=== PATIENT | female | born 1980 | race African-American/Black ===

== ENCOUNTER 2016-03-29 07:55 | Emergency (ER) | payer OTHER ==
[~2016-03-29] VITALS: Ht 160 cm; Wt 101.2 kg
[2016-03-29 08:07] VITALS: BP 140/77
[2016-03-29] MEDS ORDERED: NAPROXEN 500 MG TABLET PO ONE (08:15)
[2016-03-29] MEDS ORDERED: ONDANSETRON ODT 4 MG TAB.RAPDIS PO ONE (08:15)
--- NOTE | 2016-03-29 08:18 | PHYS DOC ---
Past Medical History Past Medical History: No Pertinent History Past Surgical History: Other Additional Past Surgical Histo: D&C, oral surgery Alcohol Use: Occasionally Drug Use: None Adult General Chief Complaint Chief Complaint: COUGH HPI HPI Patient is a 35 year old female who presents with cough, body aches. Patient reports she has had cough off/on for the past month. More acutely she has been having increased cough, body aches, chills for the past two days. Had one episode of post-tussive emesis earlier this morning. She took some acetaminophen at home for symptoms with partial relief. No other acute complaints. Review of Systems Review of Systems Constitutional: Chills Eyes: Denies change in visual acuity or eye pain HENT: Denies nasal congestion or sore throat Respiratory: Cough. Denies shortness of breath Cardiovascular: Denies chest pain GI: One episode post-tussive emesis. Denies abdominal pain, nausea, bloody stools or diarrhea : Denies dysuria or hematuria Musculoskeletal: General body aches Integument: Denies rash or skin lesions Neurologic: Denies headache, focal weakness or sensory changes Current Medications Current Medications Current Medications Medications (Trade) Dose Ordered Sig/Harry Start Time Stop Time Status Last Admin Dose Admin Naproxen (Naprosyn) 500 mg 1X ONCE 03/29/16 08:15 03/29/16 08:21 DC 03/29/16 08:52 500 MG Ondansetron HCl (Zofran Odt) 4 mg 1X ONCE 03/29/16 08:15 03/29/16 08:21 DC 03/29/16 08:52 4 MG Allergies Allergies Allergies Coded Allergies Type Severity Reaction Last Updated Verified No Known Drug Allergies 06/20/13 No Physical Exam Physical Exam Constitutional: Well developed, well nourished, no acute distress, non-toxic appearance HENT: Normocephalic, atraumatic, bilateral external ears normal Eyes: EOMI, conjunctiva normal, no discharge Neck: Normal range of motion, no stridor Cardiovascular: Heart rate normal, regular rhythm, no murmur Lungs & Thorax: Bilateral breath sounds clear to auscultation Abdomen: Bowel sounds normal, soft, non-distended, no TTP Skin: Warm, dry, no erythema, no rash Extremities: No obvious deformity, no edema Neurologic: Alert and oriented X 3, no gross deficits noted Current Patient Data Vital Signs Vital Signs Date Time Temp Pulse Resp B/P Pulse Ox O2 Delivery O2 Flow Rate FiO2 03/29/16 08:07 99.9 103 16 97 Room Air 99.9 Lab Values Laboratory Tests Test 03/29/16 08:40 Urine Test Negative (NEG) EKG EKG [] Radiology/Procedures Radiology/Procedures CXR: IMPRESSION: No acute cardiopulmonary abnormality is detected. Course & Med Decision Making Course & Med Decision Making Pertinent Labs and Imaging studies reviewed. (See chart for details) Patient is 35 year old female who presents with cough, body aches. Likely viral URI. Given duration of cough will obtain CXR. Naproxen and zofran ordered for relief of symptoms. CXR results as above. Discussed results with patient. Will plan discharge home with rx for naproxen and tessalon, instructions for follow up, return precautions. Dragon Disclaimer Dragon Disclaimer This electronic medical record was generated, in whole or in part, using a voice recognition dictation system. Departure Departure Impression: Primary Impression: Upper respiratory infection Disposition: HOME, SELF-CARE Condition: STABLE Referrals: CHRISS HERNANDEZ (PCP) Patient Instructions: Upper Respiratory Infection, Adult Additional Instructions: Thank you for allowing us to provide care today in the Emergency Department. Take the provided medication as directed. Schedule a follow up appointment with your primary care doctor. Return promptly to the Emergency Department if you develop any new or concerning symptoms. Scripts Benzonatate (Tessalon Perle)100 Mg Capsule1 Cap PO TID PRN COUGH #15 CAP Prov:CYNTHIA DANIELLE MD 03/29/16 Naproxen 375 Mg [id number] Mg PO BID #20 Prov:CYNTHIA DANIELLE MD 03/29/16 CYNTHIA DANIELLE MD Mar 29, 2016 08:18
[2016-03-29 08:49] LABS: NEG OBC UR NEG; POS OBC UR POS
--- NOTE | 2016-03-29 09:05 | RAD ---
Chest, 2 views, 03/29/2016: History: Cough Comparison is made to a study from 05/25/2010. The heart size and pulmonary vascularity are normal. The lungs are clear. There is no evidence of pleural fluid. IMPRESSION: No acute cardiopulmonary abnormality is detected.
[2016-03-29] MEDS ORDERED: BENZ100C PO (09:24)
[2016-03-29] MEDS ORDERED: NAPR375T3 PO (09:24)
== END 2016-03-29 09:28 | disposition home or self-care (01) ==
LOC: ER 07:55
DX: J06.9 Acute upper respiratory infection, unspecified (principal)
CPT/HCPCS: 71020; 81025; 99285; Q0162

== ENCOUNTER 2016-09-10 07:17 | Emergency (ER) | payer SELFPAY ==
[~2016-09-10] VITALS: Ht 160 cm; Wt 86.2 kg
[~2016-09-10 07:17] MED LIST: BENZ100C PO; NAPR375T3 PO
--- NOTE | 2016-09-10 07:20 | PHYS DOC ---
Past Medical History Past Medical History: No Pertinent History Past Surgical History: Other Additional Past Surgical Histo: D&C, oral surgery Alcohol Use: Occasionally Drug Use: None Adult General Chief Complaint Chief Complaint: VAGINAL BLEEDING HPI HPI Patient is a 36 year old -[place] female who presents with vaginal bleeding started yesterday morning. She states yesterday she took a home test was positive. She states she's one month late for her cycle. 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 She states she's had some blood clots and this is little heavier than her normal cycle. She does have some suprapubic discomfort she states is crampy in nature. Review of Systems Review of Systems Constitutional: Denies fever or chills [] Eyes: Denies change in visual acuity, redness, or eye pain [] HENT: Denies nasal congestion or sore throat [] Respiratory: Denies cough or shortness of breath [] Cardiovascular: No additional information not addressed in HPI [] GI: Denies abdominal pain, nausea, vomiting, bloody stools or diarrhea [] : Denies dysuria or hematuria [] Musculoskeletal: Denies back pain or joint pain [] Integument: Denies rash or skin lesions [] Neurologic: Denies headache, focal weakness or sensory changes [] Endocrine: Denies polyuria or polydipsia [] Current Medications Current Medications Current Medications Medications (Trade) Dose Ordered Sig/Harry Start Time Stop Time Status Last Admin Dose Admin Acetaminophen (Tylenol) 1,000 mg 1X ONCE 09/10/16 08:00 09/10/16 08:01 DC 09/10/16 08:05 1,000 MG Allergies Allergies Allergies Coded Allergies Type Severity Reaction Last Updated Verified No Known Drug Allergies 06/20/13 No Physical Exam Physical Exam Constitutional: Well developed, well nourished, no acute distress, non-toxic appearance. [] HENT: Normocephalic, atraumatic, bilateral external ears normal, oropharynx moist, no oral exudates, nose normal. [] Eyes: PERRLA, EOMI, conjunctiva normal, no discharge. [] Neck: Normal range of motion, no tenderness, supple, no stridor. [] Cardiovascular:Heart rate regular rhythm, no murmur [] Lungs & Thorax: Bilateral breath sounds clear to auscultation [] Abdomen/pelvic: Bowel sounds normal, soft, no tenderness, no masses, no pulsatile masses. Normal external genitalia, minimal blood in the vault. Skin: Warm, dry, no erythema, no rash. [] Back: No tenderness, no CVA tenderness. [] Extremities: No tenderness, no cyanosis, no clubbing, ROM intact, no edema. [] Neurologic: Alert and oriented X 3, normal motor function, normal sensory function, no focal deficits noted. [] Psychologic: Affect normal, judgement normal, mood normal. [] Current Patient Data Vital Signs Vital Signs Date Time Temp Pulse Resp B/P (MAP) Pulse Ox O2 Delivery O2 Flow Rate FiO2 09/10/16 07:31 98.2 84 18 147/69 (95) 100 Room Air 98.2 Lab Values Laboratory Tests Test 09/10/16 06:33 09/10/16 07:25 09/10/16 07:44 POC Urine HCG, Qualitative Hcg positive (Negative) Urine Collection Type Void Urine Color Yellow Urine Clarity Clear Urine pH 6.0 Urine Specific [place] 1.020 Urine Protein Negative mg/dL (NEG-TRACE) Urine Glucose (UA) Negative mg/dL (NEG) Urine Ketones (Stick) Negative mg/dL (NEG) Urine Blood Large (NEG) Urine Nitrite Negative (NEG) Urine Bilirubin Negative (NEG) Urine Urobilinogen Dipstick 1.0 mg/dL (0.2 mg/dL) Urine Leukocyte Esterase Small (NEG) Urine RBC Tntc /HPF (0-2) Urine WBC 11-20 /HPF (0-4) Urine Squamous Epithelial Cells Many /LPF Urine Bacteria Moderate /HPF (0-FEW) Urine Mucus Marked /LPF Urine Trichomonas Present White Blood Count 11.4 x10^3/uL (4.0-11.0) H Red Blood Count 4.31 x10^6/uL (3.50-5.40) Hemoglobin 11.5 g/dL (12.0-15.5) L Hematocrit 36.1 % (36.0-47.0) Mean Corpuscular Volume 84 fL (79-100) Mean Corpuscular Hemoglobin 27 pg (25-35) Mean Corpuscular Hemoglobin Concent 32 g/dL (31-37) Red Cell Distribution Width 18.1 % (11.5-14.5) H Platelet Count 236 x10^3/uL (140-400) Neutrophils (%) (Auto) 71 % (31-73) Lymphocytes (%) (Auto) 22 % (24-48) L Monocytes (%) (Auto) 5 % (0-9) Eosinophils (%) (Auto) 1 % (0-3) Basophils (%) (Auto) 1 % (0-3) Neutrophils # (Auto) 8.1 x10^3uL (1.8-7.7) H Lymphocytes # (Auto) 2.5 x10^3/uL (1.0-4.8) Monocytes # (Auto) 0.6 x10^3/uL (0.0-1.1) Eosinophils # (Auto) 0.1 x10^3/uL (0.0-0.7) Basophils # (Auto) 0.1 x10^3/uL (0.0-0.2) Prothrombin Time 11.9 SEC (11.7-14.0) Prothrombin Time INR 0.9 (0.8-1.1) PTT 30 SEC (24-38) Maternal Serum HCG Beta Subunit 571 mIU/mL (0-5) H Sodium Level 139 mmol/L (136-145) Potassium Level 4.1 mmol/L (3.5-5.1) Chloride Level 105 mmol/L (98-107) Carbon Dioxide Level 29 mmol/L (21-32) Anion Gap 5 (6-14) L Blood Urea Nitrogen 11 mg/dL (7-20) Creatinine 0.8 mg/dL (0.6-1.0) Estimated GFR (Cockcroft-Gault) 99.4 Glucose Level 100 mg/dL (70-99) H Calcium Level 8.7 mg/dL (8.5-10.1) Laboratory Tests 09/10/16 07:44 Laboratory Tests 09/10/16 07:44 Microbiology 09/10/16 Wet Prep - Final, Complete Microbiology 09/10/16 Wet Prep - Final, Complete EKG EKG [] Radiology/Procedures Radiology/Procedures [facility] [address] [place], [place] [id number] IMAGING REPORT Signed PATIENT: ROBERT KNOWLES ACCOUNT: [id number] : 1980 LOCATION: ER AGE: 36 SEX: F EXAM STATUS: REG ER ORD. PHYSICIAN: ANGELO LERMA MD REASON: bleeding in PROCEDURE: OB < 14 WKS OB ultrasound study less than 14 weeks; transabdominal and transvaginal sonography evaluation Dictations: . Vaginal bleeding. Transabdominal sonography: The uterus is anteverted in position. The longitudinal and AP and transverse dimensions of the uterus are 10.4 cm and 5.7 cm and 7.7 cm respectively. The endometrial canal is not abnormally thickened. No intrauterine gestational sac is seen. Therefore, transvaginal sonography will be performed. No free fluid is seen within the cul-de-sac. Neither ovary is visualized. Transvaginal sonography: The endometrial canal measures 8 mm in thickness. There is a small round fluid collection measuring about 5 mm in size within the fundal portion of the endometrial canal. No pole or heartbeat is seen No uterine mass or fibroid is seen. Small amount of physiologic free fluid is seen within the cul-de-sac. The right ovary measures 2.2 cm and 2.4 cm and 3.5 cm in size and is normal. The left ovary measures 3.1 cm and 2.0 cm and 2.1 cm in size and contains a 1.5 cm simple cyst. Color Doppler flow is seen within both ovaries. No adnexal masses are seen. IMPRESSION: There is a small round fluid collection within the fundal portion of the endometrial canal. This could represent a very early intrauterine gestation. However, no pole or heartbeat is seen yet. Therefore, recommend correlation with serial quantitative beta hCG studies. No adnexal mass is seen. An ectopic has not been excluded. DICTATED and SIGNED BY: MALISSA SIMEON MD DATE: 09/10/16 0854 CC: ANGELO LERMA MD; NO PCP ~ Impressions: Vaginal bleeding and Abdominal pain in Course & Med Decision Making Course & Med Decision Making Pertinent Labs and Imaging studies reviewed. (See chart for details) She's having significant pain around 8 out of 10 now she describes as crampy contraction type pain. Spoke with Dr. Lane who is agreeable to admitting the patient at this time. The patient's agreeable plan be admitted in stable condition. Dragon Disclaimer Dragon Disclaimer This electronic medical record was generated, in whole or in part, using a voice recognition dictation system. Departure Departure Impression: Primary Impression: Vaginal bleeding in patient at less than 20 weeks gestation Disposition: ADMITTED INPATIENT Admitting Physician: Other Condition: STABLE Referrals: CHRISS HERNANDEZ (PCP) ANGELO LERMA MD Sep 10, 2016 07:20
[2016-09-10 08:00] LABS: BASO # 0.1 x10^3/uL (0.0-0.2); BASO % 1 % (0-3); EOS % 1 % (0-3); HEMATOCRIT 36.1 % (36.0-47.0); HEMOGLOBIN 11.5 g/dL (12.0-15.5); LYMPH # 2.5 x10^3/uL (1.0-4.8); LYMPH % 22 % (24-48); MEAN CORPUSCULAR HEMOGLOBIN 27 pg (25-35); MEAN CORPUSCULAR HGB CONC 32 g/dL (31-37); MEAN CORPUSCULAR VOLUME 84 fL (79-100); MONO % 5 % (0-9); NEUT % 71 % (31-73); PLATELET COUNT 236 x10^3/uL (140-400); RED BLOOD COUNT 4.31 x10^6/uL (3.50-5.40); RED CELL DISTRIBUTION WIDTH 18.1 % (11.5-14.5); WHITE BLOOD COUNT 11.4 x10^3/uL (4.0-11.0)
[2016-09-10] MEDS ORDERED: ACETAMINOPHEN 500 MG TABLET PO ONE (08:00)
[2016-09-10 08:03] LABS: BILIRUBIN,URINE NEGATIVE (NEG); GLUCOSE,URINE NEGATIVE (NEG); NITRITE,URINE NEGATIVE (NEG); PROTEIN,URINE NEGATIVE (NEG-TRACE)
[2016-09-10 08:09] LABS: CALCIUM 8.7 mg/dL (8.5-10.1); CREATININE 0.8 mg/dL (0.6-1.0); GFR 99.4; POTASSIUM 4.1 mmol/L (3.5-5.1)
[2016-09-10 08:14] LABS: INR 0.9 (0.8-1.1); PROTHROMBIN TIME PATIENT 11.9 SEC (11.7-14.0)
[2016-09-10 08:19] LABS: SQUAMOUS EPITHELIAL CELL,UR MANY /LPF
[2016-09-10 08:20] LABS: BACTERIA,URINE MODERATE /HPF (0-FEW); RBC,URINE TNTC /HPF (0-2)
[2016-09-10 08:23] LABS: TRICHOMONAS,URINE PRESENT
--- NOTE | 2016-09-10 09:04 | RAD ---
OB ultrasound study less than 14 weeks; transabdominal and transvaginal sonography evaluation Dictations: . Vaginal bleeding. Transabdominal sonography: The uterus is anteverted in position. The longitudinal and AP and transverse dimensions of the uterus are 10.4 cm and 5.7 cm and 7.7 cm respectively. The endometrial canal is not abnormally thickened. No intrauterine gestational sac is seen. Therefore, transvaginal sonography will be performed. No free fluid is seen within the cul-de-sac. Neither ovary is visualized. Transvaginal sonography: The endometrial canal measures 8 mm in thickness. There is a small round fluid collection measuring about 5 mm in size within the fundal portion of the endometrial canal. No pole or heartbeat is seen No uterine mass or fibroid is seen. Small amount of physiologic free fluid is seen within the cul-de-sac. The right ovary measures 2.2 cm and 2.4 cm and 3.5 cm in size and is normal. The left ovary measures 3.1 cm and 2.0 cm and 2.1 cm in size and contains a 1.5 cm simple cyst. Color Doppler flow is seen within both ovaries. No adnexal masses are seen. IMPRESSION: There is a small round fluid collection within the fundal portion of the endometrial canal. This could represent a very early intrauterine gestation. However, no pole or heartbeat is seen yet. Therefore, recommend correlation with serial quantitative beta hCG studies. No adnexal mass is seen. An ectopic has not been excluded.
[2016-09-10 10:00] VITALS: BP 122/80
[2016-09-10] MEDS ORDERED: ONDANSETRON PF 4 MG/2 ML VIAL. IV PRN (10:45)
[2016-09-10] MEDS ORDERED: MORPHINE SULFATE 2 MG/ML DISP.SYRIN. IV PRN (10:45)
== END 2016-09-10 10:45 | disposition left against medical advice (07) ==
LOC: ER 07:17
DX: O46.91 Antepartum hemorrhage, unspecified, first trimester (principal); Z3A.01 Less than 8 weeks gestation of pregnancy
CPT/HCPCS: 36415; 76801; 80048; 81001; 81025; 84702; 85027; 85610; 85730; 86900; 86901; 87086; 87491; 87591; 99285; Q0111

== ENCOUNTER 2016-09-11 08:07 | Emergency (ER) | payer SELFPAY ==
[~2016-09-11] VITALS: Ht 160 cm; Wt 86.2 kg
[2016-09-11] MEDS ORDERED: ACETAMINOPHEN 500 MG TABLET PO ONE (08:45)
[2016-09-11 09:06] LABS: BASO # 0.1 x10^3/uL (0.0-0.2); BASO % 1 % (0-3); EOS % 1 % (0-3); HEMATOCRIT 37.2 % (36.0-47.0); LYMPH # 2.2 x10^3/uL (1.0-4.8); LYMPH % 22 % (24-48); MEAN CORPUSCULAR HEMOGLOBIN 27 pg (25-35); MEAN CORPUSCULAR HGB CONC 32 g/dL (31-37); MEAN CORPUSCULAR VOLUME 84 fL (79-100); MONO % 5 % (0-9); NEUT % 71 % (31-73); PLATELET COUNT 232 x10^3/uL (140-400); RED BLOOD COUNT 4.44 x10^6/uL (3.50-5.40); RED CELL DISTRIBUTION WIDTH 17.7 % (11.5-14.5); WHITE BLOOD COUNT 10.2 x10^3/uL (4.0-11.0)
[2016-09-11 10:00] VITALS: BP 116/76
--- NOTE | 2016-09-11 10:12 | PHYS DOC ---
Past Medical History Past Medical History: No Pertinent History Past Surgical History: Other Additional Past Surgical Histo: D&C, oral surgery Alcohol Use: Occasionally Drug Use: None Adult General Chief Complaint Chief Complaint: VAGINAL BLEEDING HPI HPI Patient is a 36 year old female who presents with vaginal bleeding in , abdominal cramping. LMP was 5/5, seen yesterday for similar complaint. HCG in 500s, US did not confirm IUP but there was something noted in uterus without pole of heart beat, no signs of ectopic. Pt has not attempted pain medication as she stated she had fallen asleep. , 1 prior miscarriage that required D&C. Pt states cramping is intermittent, she's soaked through 2 pads this morning. OB doc is Dr. Coyle. Review of Systems Review of Systems Constitutional: Denies fever or chills [] Eyes: Denies change in visual acuity, redness, or eye pain [] HENT: Denies nasal congestion or sore throat [] Respiratory: Denies cough or shortness of breath [] Cardiovascular: denies chest pain GI: Denies nausea, vomiting, bloody stools or diarrhea [] Musculoskeletal: Denies joint pain [] Integument: Denies rash or skin lesions [] Neurologic: Denies headache, focal weakness or sensory changes [] Current Medications Current Medications Current Medications Medications (Trade) Dose Ordered Sig/Harry Start Time Stop Time Status Last Admin Dose Admin Acetaminophen (Tylenol) 1,000 mg 1X ONCE 09/11/16 08:45 09/11/16 08:46 DC 09/11/16 08:46 1,000 MG Oxycodone HCl (Roxicodone) 5 mg 1X ONCE 09/11/16 10:15 09/11/16 10:16 DC 09/11/16 10:35 5 MG Allergies Allergies Allergies Coded Allergies Type Severity Reaction Last Updated Verified No Known Drug Allergies 06/20/13 No Physical Exam Physical Exam Constitutional: Well developed, well nourished, no acute distress, non-toxic appearance. [] HENT: Normocephalic, atraumatic, bilateral external ears normal, oropharynx moist, no oral exudates, nose normal. [] Eyes: PERRLA, EOMI, conjunctiva normal, no discharge. [] Neck: Normal range of motion, no tenderness, supple, no stridor. [] Cardiovascular:Heart rate regular with regular rhythm, no murmur [] Lungs & Thorax: Bilateral breath sounds clear to auscultation , no wheeze or crackles Abdomen: Bowel sounds normal, soft, no tenderness, no masses, no pulsatile masses, no guarding or peritoneal signs, nondistended, no adnexal ttp : moderate bleeding, cervix closed, no CMT, no tissue, no adnexal mass or TTP Skin: Warm, dry, no erythema, no rash. [] Back: No tenderness, no CVA tenderness. [] Extremities: No tenderness, no cyanosis, no clubbing, ROM intact, no edema. [] Neurologic: Alert and oriented X 3, normal motor function, normal sensory function, no focal deficits noted. [] Psychologic: Affect normal, judgement normal, mood normal. [] Current Patient Data Vital Signs Vital Signs Date Time Temp Pulse Resp B/P (MAP) Pulse Ox O2 Delivery O2 Flow Rate FiO2 09/11/16 10:00 72 16 116/76 (89) 100 Room Air 09/11/16 08:29 98.5 98.5 Lab Values Laboratory Tests Test 09/11/16 08:50 White Blood Count 10.2 x10^3/uL (4.0-11.0) Red Blood Count 4.44 x10^6/uL (3.50-5.40) Hemoglobin 12.0 g/dL (12.0-15.5) Hematocrit 37.2 % (36.0-47.0) Mean Corpuscular Volume 84 fL (79-100) Mean Corpuscular Hemoglobin 27 pg (25-35) Mean Corpuscular Hemoglobin Concent 32 g/dL (31-37) Red Cell Distribution Width 17.7 % (11.5-14.5) H Platelet Count 232 x10^3/uL (140-400) Neutrophils (%) (Auto) 71 % (31-73) Lymphocytes (%) (Auto) 22 % (24-48) L Monocytes (%) (Auto) 5 % (0-9) Eosinophils (%) (Auto) 1 % (0-3) Basophils (%) (Auto) 1 % (0-3) Neutrophils # (Auto) 7.3 x10^3uL (1.8-7.7) Lymphocytes # (Auto) 2.2 x10^3/uL (1.0-4.8) Monocytes # (Auto) 0.5 x10^3/uL (0.0-1.1) Eosinophils # (Auto) 0.1 x10^3/uL (0.0-0.7) Basophils # (Auto) 0.1 x10^3/uL (0.0-0.2) Maternal Serum HCG Beta Subunit 613 mIU/mL (0-5) H Laboratory Tests 09/11/16 08:50 EKG EKG [] Radiology/Procedures Radiology/Procedures [] Course & Med Decision Making Course & Med Decision Making Pertinent Labs and Imaging studies reviewed. (See chart for details) reviewed prior records, pt is RH +. HCG increased from yesterday. Pt given Tylenol and oxycodone for pain. Hgb WNL. I contacted OB doc and spoke with Dr. Adams, partner of Dr. Coyle. Recommends discharge with HCG repeat on Tuesday morning, strict return precautions given, pt voices understanding. Vlad Disclaimer Dragon Disclaimer This electronic medical record was generated, in whole or in part, using a voice recognition dictation system. Departure Departure Impression: Primary Impression: Threatened miscarriage Disposition: HOME, SELF-CARE Condition: STABLE Referrals: NO PCP (PCP) LINDA HOPKINS MD Sep 11, 2016 10:12
[2016-09-11] MEDS ORDERED: oxyCODONE IR 5 MG TABLET PO ONE (10:15)
== END 2016-09-11 10:37 | disposition home or self-care (01) ==
LOC: ER 08:07
DX: O20.0 Threatened abortion (principal); Z3A.08 8 weeks gestation of pregnancy
CPT/HCPCS: 36415; 84702; 85027; 99284

== ENCOUNTER 2016-09-17 07:18 | Emergency (ER) | payer SELFPAY ==
[~2016-09-17] VITALS: Ht 160 cm; Wt 86.2 kg
[2016-09-17 07:49] LABS: BILIRUBIN,URINE NEGATIVE (NEG); GLUCOSE,URINE NEGATIVE (NEG); NITRITE,URINE NEGATIVE (NEG); PH,URINE 6.5; PROTEIN,URINE NEGATIVE (NEG-TRACE); UROBILINOGEN,URINE 0.2 mg/dL (0.2 mg/dL)
[2016-09-17 08:03] LABS: BACTERIA,URINE 0 /HPF (0-FEW)
[2016-09-17 08:04] LABS: TRICHOMONAS,URINE PRESENT
--- NOTE | 2016-09-17 08:25 | PHYS DOC ---
Past Medical History Past Medical History: No Pertinent History Past Surgical History: Other Additional Past Surgical Histo: D&C, oral surgery Alcohol Use: Occasionally Drug Use: None Adult General Chief Complaint Chief Complaint: VAGINAL BLEEDING HPI HPI Patient is a 36 year old female presents to the emergency department with a history of vaginal bleeding. Patient states last week she took a which was positive. Patient states on the following Tuesday she developed vaginal bleeding. She was seen here 09/11 with ultrasound completed with recommendations to followup on Tuesday. Patients she was unable to get an appointment. Patient presents stating that she had decreased vaginal bleeding where she is have pink discoloration on the toilet paper. Patient states she is having back cramps in which she has not taken anything. Patient states she came today to see what is going on. [id number] Review of Systems Review of Systems Constitutional: Denies fever or chills [] Eyes: Denies change in visual acuity, redness, or eye pain [] HENT: Denies nasal congestion or sore throat [] Respiratory: Denies cough or shortness of breath [] Cardiovascular: No additional information not addressed in HPI [] GI: Denies abdominal pain, nausea, vomiting, bloody stools or diarrhea [] : Denies dysuria or hematuria. C/o vaginal bleeding Musculoskeletal: Denies back pain or joint pain [] Integument: Denies rash or skin lesions [] Neurologic: Denies headache, focal weakness or sensory changes [] Endocrine: Denies polyuria or polydipsia [] Current Medications Current Medications Current Medications Medications (Trade) Dose Ordered Sig/Harry Start Time Stop Time Status Last Admin Dose Admin Metronidazole (Flagyl) 2,000 mg 1X ONCE 09/17/16 09:30 09/17/16 09:31 DC 09/17/16 09:29 2,000 MG Allergies Allergies Allergies Coded Allergies Type Severity Reaction Last Updated Verified No Known Drug Allergies 06/20/13 No Physical Exam Physical Exam Constitutional: Well developed, well nourished, no acute distress, non-toxic appearance. [] HENT: Normocephalic, atraumatic, bilateral external ears normal, oropharynx moist, no oral exudates, nose normal. [] Eyes: PERRLA, EOMI, conjunctiva normal, no discharge. [] Neck: Normal range of motion, no tenderness, supple, no stridor. [] Cardiovascular:Heart rate regular rhythm, no murmur [] Lungs & Thorax: Bilateral breath sounds clear to auscultation [] Abdomen: Bowel sounds normal, soft, no tenderness, no masses, no pulsatile masses. [] Skin: Warm, dry, no erythema, no rash. [] Back: No tenderness Extremities: No tenderness, no cyanosis, no clubbing, ROM intact, no edema. [] Neurologic: Alert and oriented X 3, normal motor function, normal sensory function, no focal deficits noted. [] Psychologic: Affect normal, judgement normal, mood normal. [] Current Patient Data Vital Signs Vital Signs Date Time Temp Pulse Resp B/P (MAP) Pulse Ox O2 Delivery O2 Flow Rate FiO2 09/17/16 08:38 74 17 142/56 (84) 99 Room Air 09/17/16 07:44 98.4 98.4 Lab Values Laboratory Tests Test 09/17/16 06:44 09/17/16 07:30 09/17/16 08:15 POC Urine HCG, Qualitative Hcg positive (Negative) Urine Collection Type Void Urine Color Yellow Urine Clarity Clear Urine pH 6.5 Urine Specific [place] <=1.005 Urine Protein Negative mg/dL (NEG-TRACE) Urine Glucose (UA) Negative mg/dL (NEG) Urine Ketones (Stick) Negative mg/dL (NEG) Urine Blood Moderate (NEG) Urine Nitrite Negative (NEG) Urine Bilirubin Negative (NEG) Urine Urobilinogen Dipstick 0.2 mg/dL (0.2 mg/dL) Urine Leukocyte Esterase Moderate (NEG) Urine RBC 6-10 /HPF (0-2) Urine WBC 1-4 /HPF (0-4) Urine Bacteria 0 /HPF (0-FEW) Urine Trichomonas Present White Blood Count 9.7 x10^3/uL (4.0-11.0) Red Blood Count 4.27 x10^6/uL (3.50-5.40) Hemoglobin 11.6 g/dL (12.0-15.5) L Hematocrit 35.3 % (36.0-47.0) L Mean Corpuscular Volume 83 fL (79-100) Mean Corpuscular Hemoglobin 27 pg (25-35) Mean Corpuscular Hemoglobin Concent 33 g/dL (31-37) Red Cell Distribution Width 17.9 % (11.5-14.5) H Platelet Count 234 x10^3/uL (140-400) Neutrophils (%) (Auto) 77 % (31-73) H Lymphocytes (%) (Auto) 16 % (24-48) L Monocytes (%) (Auto) 5 % (0-9) Eosinophils (%) (Auto) 1 % (0-3) Basophils (%) (Auto) 1 % (0-3) Neutrophils # (Auto) 7.4 x10^3uL (1.8-7.7) Lymphocytes # (Auto) 1.6 x10^3/uL (1.0-4.8) Monocytes # (Auto) 0.5 x10^3/uL (0.0-1.1) Eosinophils # (Auto) 0.1 x10^3/uL (0.0-0.7) Basophils # (Auto) 0.0 x10^3/uL (0.0-0.2) Maternal Serum HCG Beta Subunit 437 mIU/mL (0-5) H Sodium Level 141 mmol/L (136-145) Potassium Level 3.9 mmol/L (3.5-5.1) Chloride Level 105 mmol/L (98-107) Carbon Dioxide Level 28 mmol/L (21-32) Anion Gap 8 (6-14) Blood Urea Nitrogen 13 mg/dL (7-20) Creatinine 0.9 mg/dL (0.6-1.0) Estimated GFR (Cockcroft-Gault) 86.7 BUN/Creatinine Ratio 14 (6-20) Glucose Level 99 mg/dL (70-99) Calcium Level 8.7 mg/dL (8.5-10.1) Total Bilirubin 0.2 mg/dL (0.2-1.0) Aspartate Amino Transferase (AST) 11 U/L (15-37) L Alanine Aminotransferase (ALT) 16 U/L (14-59) Alkaline Phosphatase 80 U/L (46-116) Total Protein 7.5 g/dL (6.4-8.2) Albumin 3.7 g/dL (3.4-5.0) Albumin/Globulin Ratio 1.0 (1.0-1.7) Laboratory Tests 09/17/16 08:15 Laboratory Tests 09/17/16 08:15 EKG EKG [] Radiology/Procedures Radiology/Procedures [] Course & Med Decision Making Course & Med Decision Making Pertinent Labs and Imaging studies reviewed. (See chart for details) Repeat Quant today was lower than last. Patient's blood type is positive. Patient's ultrasound showed no heart tones. Patient will be encouraged to follow-up with her [facility] or her primary care in the next 2 days to make sure that the the quant levels continue to drop. Patient was instructed to monitor her bleeding return back to emergency department signs and symptoms have been included such as any lightheadedness or dizziness that she needs to return. Patient was also instructed to refrain from any type of sexual activity, otherwise known as pelvic rest. Patient agrees with discharge instructions treatment regimens and follow-up recommendations. Patient was instructed on threatened abortions as I feel that the miscarriage has are ready occurred as the quant levels are starting to drop. Dragon Disclaimer Dragon Disclaimer This electronic medical record was generated, in whole or in part, using a voice recognition dictation system. Departure Departure Impression: Primary Impression: Threatened miscarriage Additional Impressions: Trichomonal vaginitis in UTI (urinary tract infection) Disposition: 01 HOME, SELF-CARE Condition: STABLE Referrals: NO PCP (PCP) SAVANNAH RICHARDSON MD Patient Instructions: Threatened Miscarriage, [id number], Trichomoniasis- Brief, Urinary Tract Infection, [id number] Additional Instructions: Your quantitative hCG has decreased from the last time he were here which identifies you are probably miscarrying. Her quantitative number today is 437, when you were seen here on the first it was 613 Your urine was also positive for Trichomonas which is a sexual transmitted infection. He will need to notify your partner in regards to this test being positive. You have been treated for Trichomonas here in the emergency department today. Your urine was also positive for urinary tract infection. Pelvic rest: This means nothing to be inserted into your vaginal area, no tampons no douching no foreplay no sex. Drink plenty of fluids such as water and cranberry juice. Avoid cranberry juice cocktail, carbonated beverages, citrus fruits and alcohol and caffeine as these are considered irritants to the bladder. Medications as prescribed. Tylenol for pain and discomfort. Follow-up with your primary care physician or [facility] in regards to following the quantitative results to make sure they continued to trend down. Return back to emergency prior signs symptoms of become worse. Scripts Nitrofurantoin Monohyd/M-Cryst (MACROBID 100 MG CAPSULE) 100 Mg Capsule 1 CAP PO BID, #14 CAP Prov: MÓNICA BARBA APRN 09/17/16 Problem Qualifiers MÓNICA BARBA APRN Sep 17, 2016 08:25
[2016-09-17 08:28] LABS: BASO % 1 % (0-3); EOS % 1 % (0-3); HEMATOCRIT 35.3 % (36.0-47.0); HEMOGLOBIN 11.6 g/dL (12.0-15.5); LYMPH # 1.6 x10^3/uL (1.0-4.8); LYMPH % 16 % (24-48); MEAN CORPUSCULAR HEMOGLOBIN 27 pg (25-35); MEAN CORPUSCULAR HGB CONC 33 g/dL (31-37); MEAN CORPUSCULAR VOLUME 83 fL (79-100); MONO % 5 % (0-9); NEUT % 77 % (31-73); PLATELET COUNT 234 x10^3/uL (140-400); RED BLOOD COUNT 4.27 x10^6/uL (3.50-5.40); RED CELL DISTRIBUTION WIDTH 17.9 % (11.5-14.5); WHITE BLOOD COUNT 9.7 x10^3/uL (4.0-11.0)
--- NOTE | 2016-09-17 08:33 | RAD ---
Obstetrical ultrasound, 09/17/2016: History: , vaginal bleeding Transabdominal and transvaginal scans were obtained. There is a small rounded fluid collection in the central uterine cavity demonstrating a mean diameter of 7 mm. It contains a small collection of internal echoes. No heart motion is seen. A similar appearance was present on the study of 09/10/2016. If this were a viable one would expect significant interval growth. The uterus is otherwise unremarkable. The ovaries were not visualized. No adnexal mass is seen. No free fluid is evident in the pelvis. IMPRESSION: Probable nonviable early intrauterine as described above. Correlation with hCG titers is suggested.
[2016-09-17 08:38] VITALS: BP 142/56
[2016-09-17 08:41] LABS: CALCIUM 8.7 mg/dL (8.5-10.1); CREATININE 0.9 mg/dL (0.6-1.0); GFR 86.7; POTASSIUM 3.9 mmol/L (3.5-5.1)
[2016-09-17 08:47] LABS: ALBUMIN 3.7 g/dL (3.4-5.0); TOTAL BILIRUBIN 0.2 mg/dL (0.2-1.0); TOTAL PROTEIN 7.5 g/dL (6.4-8.2)
[2016-09-17] MEDS ORDERED: NITR100C62 PO (09:29)
[2016-09-17] MEDS ORDERED: metroNIDAZOLE 500 MG TABLET PO ONE (09:30)
== END 2016-09-17 09:36 | disposition home or self-care (01) ==
LOC: ER 07:18
DX: O20.0 Threatened abortion (principal); O23.40 Unspecified infection of urinary tract in pregnancy, unspecified trimester; O98.319 Other infections with a predominantly sexual mode of transmission complicating pregnancy, unspecified trimester; A59.01 Trichomonal vulvovaginitis; Z3A.00 Weeks of gestation of pregnancy not specified
CPT/HCPCS: 36415; 76801; 76817; 80053; 81001; 81025; 84702; 85027; 87086; 99285-25

== ENCOUNTER 2017-11-25 05:19 | Emergency (ER) | payer SELFPAY ==
[~2017-11-25] VITALS: Ht 162.6 cm; Wt 86.2 kg
[~2017-11-25 05:19] MED LIST changes: +NAPR-695 PO; -NAPR375T3 PO; +NITR100C62 PO
--- NOTE | 2017-11-25 06:31 | PHYS DOC ---
Past Medical History Past Medical History: No Pertinent History Past Surgical History: Other Additional Past Surgical Histo: D&C, oral surgery Alcohol Use: None Drug Use: None Adult General Chief Complaint Chief Complaint: GENERALIZED BODY ACHES HPI HPI Patient is a 37 year old female presented to ER today for evaluation of 3 day history of nonproductive cough, chill. Patient denied any chest pain or trouble breathing. Patient says she is about 7 weeks her last menstrual period was on October 07, 2017. Patient had been nine times,, had two miscarries. Patient is also complaining of some pelvic cramping, no vaginal bleeding or discharge. She denies any fever. Patient has not had care yet. Review of Systems Review of Systems Constitutional: Denies fever or chills [] Eyes: Denies change in visual acuity, redness, or eye pain [] HENT: Denies nasal congestion or sore throat [] Respiratory: Positive for cough,no chest pain, no shortness of breath [] Cardiovascular: No additional information not addressed in HPI [] GI: Denies abdominal pain, nausea, vomiting, bloody stools or diarrhea [] : Denies dysuria or hematuria, positive for pelvic cramping. No vaginal bleeding or discharge. Musculoskeletal: Denies back pain or joint pain [] Integument: Denies rash or skin lesions [] Neurologic: Denies headache, focal weakness or sensory changes [] Endocrine: Denies polyuria or polydipsia [] All other systems were reviewed and found to be within normal limits, except as documented in this note. Current Medications Current Medications Current Medications Medications (Trade) Dose Ordered Sig/[facility] Start Time Stop Time Status Last Admin Dose Admin Acetaminophen (Tylenol) 1,000 mg 1X ONCE 11/25/17 09:30 11/25/17 09:31 DC 11/25/17 09:30 1,000 MG Allergies Allergies Allergies Coded Allergies Type Severity Reaction Last Updated Verified No Known Drug Allergies 06/20/13 No Physical Exam Physical Exam Constitutional: Well developed, well nourished, no acute distress, non-toxic appearance. [] HENT: Normocephalic, atraumatic, bilateral external ears normal, oropharynx moist, no oral exudates, nose normal. [] Eyes: PERRLA, EOMI, conjunctiva normal, no discharge. [] Neck: Normal range of motion, no tenderness, supple, no stridor. [] Cardiovascular:Heart rate regular rhythm, no murmur [] Lungs & Thorax: Bilateral breath sounds clear to auscultation [] Abdomen: Bowel sounds normal, soft, no tenderness, no masses, no pulsatile masses. [] Skin: Warm, dry, no erythema, no rash. [] Back: No tenderness, no CVA tenderness. [] Extremities: No tenderness, no cyanosis, no clubbing, ROM intact, no edema. [] Neurologic: Alert and oriented X 3, normal motor function, normal sensory function, no focal deficits noted. [] Psychologic: Affect normal, judgement normal, mood normal. [] Current Patient Data Vital Signs Vital Signs Date Time Temp Pulse Resp B/P (MAP) Pulse Ox O2 Delivery O2 Flow Rate FiO2 11/25/17 09:40 78 129/66 (87) 99 Room Air 11/25/17 05:56 98.4 20 98.4 Lab Values Laboratory Tests Test 11/25/17 05:52 11/25/17 06:50 Urine Collection Type Unknown Urine Color Yellow Urine Clarity Clear Urine pH 7.5 Urine Specific [place] 1.015 Urine Protein Negative mg/dL (NEG-TRACE) Urine Glucose (UA) Negative mg/dL (NEG) Urine Ketones (Stick) Trace mg/dL (NEG) Urine Blood Negative (NEG) Urine Nitrite Negative (NEG) Urine Bilirubin Negative (NEG) Urine Urobilinogen Dipstick 0.2 mg/dL (0.2 mg/dL) Urine Leukocyte Esterase Trace (NEG) Urine RBC 0 /HPF (0-2) Urine WBC 0 /HPF (0-4) Urine Squamous Epithelial Cells Few /LPF Urine Bacteria 0 /HPF (0-FEW) White Blood Count 9.7 x10^3/uL (4.0-11.0) Red Blood Count 4.60 x10^6/uL (3.50-5.40) Hemoglobin 12.8 g/dL (12.0-15.5) Hematocrit 38.2 % (36.0-47.0) Mean Corpuscular Volume 83 fL (79-100) Mean Corpuscular Hemoglobin 28 pg (25-35) Mean Corpuscular Hemoglobin Concent 34 g/dL (31-37) Red Cell Distribution Width 17.1 % (11.5-14.5) H Platelet Count 249 x10^3/uL (140-400) Neutrophils (%) (Auto) 80 % (31-73) H Lymphocytes (%) (Auto) 14 % (24-48) L Monocytes (%) (Auto) 5 % (0-9) Eosinophils (%) (Auto) 1 % (0-3) Basophils (%) (Auto) 1 % (0-3) Neutrophils # (Auto) 7.8 x10^3uL (1.8-7.7) H Lymphocytes # (Auto) 1.3 x10^3/uL (1.0-4.8) Monocytes # (Auto) 0.5 x10^3/uL (0.0-1.1) Eosinophils # (Auto) 0.1 x10^3/uL (0.0-0.7) Basophils # (Auto) 0.1 x10^3/uL (0.0-0.2) Prothrombin Time 12.8 SEC (11.7-14.0) Prothrombin Time INR 1.0 (0.8-1.1) PTT 33 SEC (24-38) Maternal Serum HCG Beta Subunit 25977 mIU/mL (0-5) H Sodium Level 139 mmol/L (136-145) Potassium Level 4.2 mmol/L (3.5-5.1) Chloride Level 103 mmol/L (98-107) Carbon Dioxide Level 25 mmol/L (21-32) Anion Gap 11 (6-14) Blood Urea Nitrogen 9 mg/dL (7-20) Creatinine 0.8 mg/dL (0.6-1.0) Estimated GFR (Cockcroft-Gault) 98.8 BUN/Creatinine Ratio 11 (6-20) Glucose Level 92 mg/dL (70-99) Calcium Level 8.8 mg/dL (8.5-10.1) Total Bilirubin 0.6 mg/dL (0.2-1.0) Aspartate Amino Transferase (AST) 14 U/L (15-37) L Alanine Aminotransferase (ALT) 19 U/L (14-59) Alkaline Phosphatase 91 U/L (46-116) Total Protein 7.2 g/dL (6.4-8.2) Albumin 3.8 g/dL (3.4-5.0) Albumin/Globulin Ratio 1.1 (1.0-1.7) Laboratory Tests 9/14/18 06:50 Laboratory Tests 11/25/17 06:50 EKG EKG [] Radiology/Procedures Radiology/Procedures [][place] [id number] IMAGING REPORT Signed PATIENT: ROBERT KNOWLES ACCOUNT: [id number] : 1980 LOCATION: ER AGE: 37 SEX: F EXAM STATUS: REG ER ORD. PHYSICIAN: MARINO DE JESUS DO REASON: cough for 2 days, 7 weeks PROCEDURE: CHEST PA & LATERAL Chest, 2 views, 11/25/2017: HISTORY: Chest pain The heart size is at the upper limits of normal. The pulmonary vascularity is normal. No pulmonary infiltrate is seen. There is no evidence of pleural fluid. IMPRESSION: No acute cardiopulmonary abnormality is detected. Electronically signed by: Sascha Mora MD (11/25/2017 7:38 AM) [facility] DICTATED and SIGNED BY: SASCHA MORA MD DATE: 11/25/[address] [id number] IMAGING REPORT Signed PATIENT: ROBERT KNOWLES ACCOUNT: [id number] : 1980 LOCATION: ER AGE: 37 SEX: F EXAM STATUS: REG ER ORD. PHYSICIAN: MARINO DE JESUS DO REASON: pelvic pain, about 7-8 weeks , SERUM HCG LEVEL: [id number] PROCEDURE: OB > 14 WKS W/TV Examination: Obstetric ultrasound HISTORY: History of abdominal pain, pelvic pain COMPARISON: None available FINDINGS: The uterus measures 10.3 x 7.5 x 5.3 cm. Small amount of free fluid identified in the cul-de-sac. The right ovary measures 4.3 x 1.9 x 2.8 cm. The left ovary measures 3.7 x 2.0 x 1.8 cm. Gestational sac identified. A yolk sac is identified. pole is identified with heart rate of 119 bpm. Gestational sac measures 1.9 cm corresponding to 6 weeks and 6 days. [place]-rump length measures 0.8 cm corresponding to 6 weeks and 6 days. Estimated gestational age by ultrasound is 6 weeks and 6 days with expected date of delivery by this ultrasound 07/15/2018. Given LMP 10/07/2017. Clinical age is 7 weeks and 0 days with estimated date of delivery by LMP 07/14/2018. IMPRESSION: Single living intrauterine with heart of 119 bpm. Electronically signed by: Se Armijo MD (11/25/2017 9:28 AM) [id number] DICTATED and SIGNED BY: SE ARMIJO MD DATE: 11/25/17 0924 Impressions: URI IUP Course & Med Decision Making Course & Med Decision Making Pertinent Labs and Imaging studies reviewed. (See chart for details) [] Dragon Disclaimer Dragon Disclaimer This electronic medical record was generated, in whole or in part, using a voice recognition dictation system. Departure Departure Impression: Primary Impression: Abdominal pain during intrauterine Additional Impression: Upper respiratory infection Disposition: 01 HOME, SELF-CARE Condition: STABLE Referrals: NO PCP (PCP) FOLLOW UP WITH YOUR [facility] DOCTOR NEXT WEEK FOR CARE. TAKE ACETAMINOPHEN 1G NEEDED FOR PAIN EVERY SIX HOURS. Patient Instructions: Abdominal Pain During , Upper Respiratory Infection, Adult Problem Qualifiers MARINO DE JESUS DO Nov 25, 2017 06:31
[2017-11-25 06:50] LABS: BILIRUBIN,URINE NEGATIVE (NEG); CLARITY,URINE CLEAR; COLOR,URINE YELLOW; NITRITE,URINE NEGATIVE (NEG); PH,URINE 7.5; PROTEIN,URINE NEGATIVE (NEG-TRACE); UROBILINOGEN,URINE 0.2 mg/dL (0.2 mg/dL)
[2017-11-25 07:18] LABS: CALCIUM 8.8 mg/dL (8.5-10.1); CREATININE 0.8 mg/dL (0.6-1.0); GFR 98.8; POTASSIUM 4.2 mmol/L (3.5-5.1)
[2017-11-25 07:25] LABS: ALBUMIN 3.8 g/dL (3.4-5.0); ALBUMIN/GLOBULIN RATIO 1.1 (1.0-1.7); TOTAL BILIRUBIN 0.6 mg/dL (0.2-1.0); TOTAL PROTEIN 7.2 g/dL (6.4-8.2)
[2017-11-25 07:28] LABS: BACTERIA,URINE 0 /HPF (0-FEW); RBC,URINE 0 /HPF (0-2); SQUAMOUS EPITHELIAL CELL,UR FEW /LPF; WBC,URINE 0 /HPF (0-4)
[2017-11-25 07:40] LABS: BASO # 0.1 x10^3/uL (0.0-0.2); BASO % 1 % (0-3); EOS # 0.1 x10^3/uL (0.0-0.7); EOS % 1 % (0-3); HEMATOCRIT 38.2 % (36.0-47.0); HEMOGLOBIN 12.8 g/dL (12.0-15.5); LYMPH # 1.3 x10^3/uL (1.0-4.8); LYMPH % 14 % (24-48); MEAN CORPUSCULAR HEMOGLOBIN 28 pg (25-35); MEAN CORPUSCULAR HGB CONC 34 g/dL (31-37); MEAN CORPUSCULAR VOLUME 83 fL (79-100); MONO # 0.5 x10^3/uL (0.0-1.1); MONO % 5 % (0-9); NEUT # 7.8 x10^3uL (1.8-7.7); NEUT % 80 % (31-73); PLATELET COUNT 249 x10^3/uL (140-400); RED CELL DISTRIBUTION WIDTH 17.1 % (11.5-14.5); WHITE BLOOD COUNT 9.7 x10^3/uL (4.0-11.0)
--- NOTE | 2017-11-25 07:41 | RAD ---
Chest, 2 views, 11/25/2017: HISTORY: Chest pain The heart size is at the upper limits of normal. The pulmonary vascularity is normal. No pulmonary infiltrate is seen. There is no evidence of pleural fluid. IMPRESSION: No acute cardiopulmonary abnormality is detected. Electronically signed by: Sascha Huntley MD (11/25/2017 7:38 AM) [facility]
[2017-11-25 07:47] LABS: PROTHROMBIN TIME PATIENT 12.8 SEC (11.7-14.0)
[2017-11-25] MEDS ORDERED: ACETAMINOPHEN 500 MG TABLET PO ONE (09:30)
--- NOTE | 2017-11-25 09:31 | RAD ---
Examination: Obstetric ultrasound HISTORY: History of abdominal pain, pelvic pain COMPARISON: None available FINDINGS: The uterus measures 10.3 x 7.5 x 5.3 cm. Small amount of free fluid identified in the cul-de-sac. The right ovary measures 4.3 x 1.9 x 2.8 cm. The left ovary measures 3.7 x 2.0 x 1.8 cm. Gestational sac identified. A yolk sac is identified. pole is identified with heart rate of 119 bpm. Gestational sac measures 1.9 cm corresponding to 6 weeks and 6 days. [place]-rump length measures 0.8 cm corresponding to 6 weeks and 6 days. Estimated gestational age by ultrasound is 6 weeks and 6 days with expected date of delivery by this ultrasound 07/15/2018. Given LMP 10/07/2017. Clinical age is 7 weeks and 0 days with estimated date of delivery by LMP 07/14/2018. IMPRESSION: Single living intrauterine with heart of 119 bpm. Electronically signed by: Se Armijo MD (11/25/2017 9:28 AM) [id number]
[2017-11-25 09:40] VITALS: BP 129/66
== END 2017-11-25 10:16 | disposition home or self-care (01) ==
LOC: ER 05:19
DX: O99.511 Diseases of the respiratory system complicating pregnancy, first trimester (principal); R10.2 Pelvic and perineal pain; Z3A.01 Less than 8 weeks gestation of pregnancy
CPT/HCPCS: 36415; 71046; 76805; 76817; 80053; 81001; 84702; 85025; 85610; 85730; 87086; 99285-25

== ENCOUNTER 2018-08-16 16:55 | Emergency (ER) | payer OTHER ==
[~2018-08-16] VITALS: Ht 162.6 cm; Wt 95.3 kg
[2018-08-16 17:20] LABS: BILIRUBIN,URINE NEGATIVE (NEG); CLARITY,URINE CLEAR; COLOR,URINE YELLOW; NITRITE,URINE NEGATIVE (NEG); PROTEIN,URINE NEGATIVE (NEG-TRACE)
[2018-08-16 17:24] LABS: SQUAMOUS EPITHELIAL CELL,UR MOD /LPF
[2018-08-16 17:25] LABS: WBC,URINE 20-40 /HPF (0-4)
[2018-08-16 17:26] LABS: BACTERIA,URINE FEW /HPF (0-FEW)
[2018-08-16] MEDS ORDERED: IV NORMAL SALINE 1000ML BAG 1,000 ML IV ONE ×2 (17:45)
[2018-08-16] MEDS ORDERED: IBUPROFEN 400 MG TABLET. PO ONE (17:45)
[2018-08-16] MEDS ORDERED: ONDANSETRON PF 4 MG/2 ML VIAL. IV ONE (17:45)
[2018-08-16] MEDS ORDERED: ACETAMINOPHEN 500 MG TABLET PO ONE (17:45)
[2018-08-16] MEDS ORDERED: cefTRIAXone IV Push 1 GM VIAL. IVP ONE (17:45)
--- NOTE | 2018-08-16 18:46 | PHYS DOC ---
Past Medical History Past Medical History: No Pertinent History Past Surgical History: Other Additional Past Surgical Histo: D&C, oral surgery Alcohol Use: None Drug Use: None Adult General Chief Complaint Chief Complaint: GENERALIZED BODY ACHES [facility] HPI Patient is a 38 year old female with no significant medical history who presents to the ED today complaining of generalized body aches, subjective fevers, and lower abdominal pain, symptoms began yesterday. Patient states she had a vaginal delivery on July 09, 2018 with no complications. That was her seventh baby. Patient denies any chance she is . Denies any nausea vomiting. Denies any exacerbating or alleviating factors to her symptoms. Denies any vaginal bleeding. She states she's had vaginal discharge since yesterday. Denies concerns for STDs. Review of Systems Review of Systems Constitutional: Reports fever, body aches Eyes: Denies change in visual acuity, redness, or eye pain [] HENT: Denies nasal congestion or sore throat [] Respiratory: Denies cough or shortness of breath [] Cardiovascular: No additional information not addressed in HPI [] GI: Reports lower abdominal pain, denies nausea, vomiting, bloody stools or diarrhea [] : Denies dysuria or hematuria [] Musculoskeletal: Denies back pain or joint pain [] Integument: Denies rash or skin lesions [] Neurologic: Denies headache, focal weakness or sensory changes [] All other systems were reviewed and found to be within normal limits, except as documented in this note. Current Medications Current Medications Current Medications Medications (Trade) Dose Ordered Sig/Harry Start Time Stop Time Status Last Admin Dose Admin Acetaminophen (Tylenol) 1,000 mg 1X ONCE 08/16/18 17:45 08/16/18 17:46 DC 08/16/18 18:47 1,000 MG Ceftriaxone Sodium (Rocephin) 1 gm 1X ONCE 08/16/18 17:45 08/16/18 17:46 DC 08/16/18 18:48 1 GM Ibuprofen (Motrin) 800 mg 1X ONCE 08/16/18 17:45 08/16/18 17:46 DC 08/16/18 18:47 800 MG Ketorolac Tromethamine (Toradol 30mg Vial) 30 mg 1X ONCE 08/16/18 19:45 08/16/18 19:46 UNV Ondansetron HCl (Zofran) 4 mg 1X ONCE 08/16/18 17:45 08/16/18 17:46 DC 08/16/18 18:46 4 MG Sodium Chloride 1,000 ml @ 1,000 mls/hr 1X ONCE 08/16/18 17:45 08/16/18 18:44 DC 08/16/18 17:45 1,000 MLS/HR Allergies Allergies Allergies Coded Allergies Type Severity Reaction Last Updated Verified No Known Drug Allergies 06/20/13 No Physical Exam Physical Exam Constitutional: Well developed, well nourished, no acute distress, non-toxic appearance. [] HENT: Normocephalic, atraumatic, bilateral external ears normal, oropharynx moist, no oral exudates, nose normal. [] Eyes: PERRLA, EOMI, conjunctiva normal, no discharge. [] Neck: Normal range of motion, no tenderness, supple, no stridor. [] Cardiovascular:Heart rate regular rhythm, no murmur [] Lungs & Thorax: Bilateral breath sounds clear to auscultation [] Abdomen: Bowel sounds normal, soft, no tenderness, no masses, no pulsatile masses. [] Skin: Warm, dry, no erythema, no rash. [] Back: No tenderness, no CVA tenderness. [] Extremities: No tenderness, no cyanosis, no clubbing, ROM intact, no edema. [] Neurologic: Alert and oriented X 3, normal motor function, normal sensory function, no focal deficits noted. [] Psychologic: Affect normal, judgement normal, mood normal. [] Current Patient Data Vital Signs Vital Signs Date Time Temp Pulse Resp B/P (MAP) Pulse Ox O2 Delivery O2 Flow Rate FiO2 08/16/18 17:25 101.8 111 18 176/95 (122) 95 Room Air 101.8 Lab Values Laboratory Tests Test 08/16/18 17:05 08/16/18 17:09 08/16/18 18:30 Urine Collection Type Unknown Urine Color Yellow Urine Clarity Clear Urine pH 7.0 Urine Specific [place] 1.010 Urine Protein Negative mg/dL (NEG-TRACE) Urine Glucose (UA) Negative mg/dL (NEG) Urine Ketones (Stick) Negative mg/dL (NEG) Urine Blood Moderate (NEG) Urine Nitrite Negative (NEG) Urine Bilirubin Negative (NEG) Urine Urobilinogen Dipstick 1.0 mg/dL (0.2 mg/dL) Urine Leukocyte Esterase Moderate (NEG) Urine RBC 11-20 /HPF (0-2) Urine WBC 20-40 /HPF (0-4) Urine Squamous Epithelial Cells Mod /LPF Urine Bacteria Few /HPF (0-FEW) POC Urine HCG, Qualitative Hcg negative (Negative) White Blood Count 12.9 x10^3/uL (4.0-11.0) H Red Blood Count 4.27 x10^6/uL (3.50-5.40) Hemoglobin 11.6 g/dL (12.0-15.5) L Hematocrit 34.7 % (36.0-47.0) L Mean Corpuscular Volume 81 fL (79-100) Mean Corpuscular Hemoglobin 27 pg (25-35) Mean Corpuscular Hemoglobin Concent 33 g/dL (31-37) Red Cell Distribution Width 20.6 % (11.5-14.5) H Platelet Count 212 x10^3/uL (140-400) Neutrophils (%) (Auto) 83 % (31-73) H Lymphocytes (%) (Auto) 11 % (24-48) L Monocytes (%) (Auto) 6 % (0-9) Eosinophils (%) (Auto) 0 % (0-3) Basophils (%) (Auto) 1 % (0-3) Neutrophils # (Auto) 10.7 x10^3uL (1.8-7.7) H Lymphocytes # (Auto) 1.4 x10^3/uL (1.0-4.8) Monocytes # (Auto) 0.8 x10^3/uL (0.0-1.1) Eosinophils # (Auto) 0.0 x10^3/uL (0.0-0.7) Basophils # (Auto) 0.1 x10^3/uL (0.0-0.2) Platelet Estimate Adequate (ADEQUATE) Anisocytosis Mod Microcytosis Slight Sodium Level 139 mmol/L (136-145) Potassium Level 4.1 mmol/L (3.5-5.1) Chloride Level 104 mmol/L (98-107) Carbon Dioxide Level 24 mmol/L (21-32) Anion Gap 11 (6-14) Blood Urea Nitrogen 9 mg/dL (7-20) Creatinine 0.9 mg/dL (0.6-1.0) Estimated GFR (Cockcroft-Gault) 85.7 BUN/Creatinine Ratio 10 (6-20) Glucose Level 95 mg/dL (70-99) Lactic Acid Level 0.7 mmol/L (0.4-2.0) Calcium Level 9.1 mg/dL (8.5-10.1) Total Bilirubin 0.6 mg/dL (0.2-1.0) Aspartate Amino Transferase (AST) 15 U/L (15-37) Alanine Aminotransferase (ALT) 16 U/L (14-59) Alkaline Phosphatase 91 U/L (46-116) Total Protein 7.1 g/dL (6.4-8.2) Albumin 3.3 g/dL (3.4-5.0) L Albumin/Globulin Ratio 0.9 (1.0-1.7) L Laboratory Tests 08/16/18 18:30 Laboratory Tests 08/16/18 18:30 Microbiology 08/16/18 Wet Prep - Final, Complete EKG EKG [] Radiology/Procedures Radiology/Procedures [] Course & Med Decision Making Course & Med Decision Making Pertinent Labs and Imaging studies reviewed. (See chart for details) This is a 38-year-old female patient presenting to the ED today with generalized body aches, subjective fevers, no abdominal pain. Negative urine hCG, urine analysis is noted for UTI. On arrival to the ED temperature 101.8 heart rate 111 respiration 18 blood pressure 176/95 O2 sats 95% on room air. Sepsis protocol ordered. Rocephin ordered. Patient was also complaining of vaginal discharge, wet prep noted clue cells will d/c with Flagyl CBC with a WBC of 12.9 with a slight left shift, CMP with no acute findings. Urine analysis is noted for moderate amount of leukocytes and blood. Lactic is normal. Patient was given IV fluids. On reevaluation I talked to patient regarding admission versus discharge to home. Patient has a baby she delivered at the end of June 2018. She was discharged to home. Instructed to push fluids. Prescription for Cipro Rx given. F/u with PCP or urology. Instructed to return to the Ed if symptoms worsen. Dragon Disclaimer Dragon Disclaimer This electronic medical record was generated, in whole or in part, using a voice recognition dictation system. Departure Departure Impression: Primary Impression: Pyelonephritis Additional Impressions: Fever Bacterial vaginosis Disposition: 01 HOME, SELF-CARE Condition: STABLE Referrals: NO PCP (PCP) MOON WOLFF MD follow up in 1-2 weeks Patient Instructions: Bacterial Vaginosis, [id number], Fever, Adult, Pyelone phritis, Adult, [id number] Additional Instructions: You were evaluated in the emergency room and noted to have a kidney infection. We put you on antibiotics, ensure you complete them. Please push fluids. Take ibuprofen for fever or pain. You can also take hydrocodone for pain but do not mix it with Tylenol. Follow-up with your own doctor or the provided doctor in one week. Come back to the ED at any point symptoms worsen. Scripts Prochlorperazine Maleate (Compazine) 10 Mg Tablet 10 MG PO TID PRN for NAUSEA, #20 TAB Prov: DWAIN PORTER APRN 08/16/18 Metronidazole (FLAGYL) 500 Mg Tablet 1 TAB PO BID, #14 TAB Prov: DWAIN PORTER APRN 19 Hydrocodone/Apap 5-325 (NORCO 5-325 TABLET) 1 Each Tablet 1 TAB PO Q6HRS, #12 TAB Prov: DWAIN PORTER APRN /19 Ciprofloxacin Hcl (CIPRO) 500 Mg Tablet 1 TAB PO BID, #14 TAB Prov: DWAIN PORTER APRN 19 Problem Qualifiers Additional Impressions: Fever Fever type: unspecified Qualified Codes: R50.9 - Fever, unspecified DWAIN PORTER APRN Aug 16, 2018 18:46
[2018-08-16 18:51] LABS: BASO # 0.1 x10^3/uL (0.0-0.2); BASO % 1 % (0-3); EOS % 0 % (0-3); HEMATOCRIT 34.7 % (36.0-47.0); HEMOGLOBIN 11.6 g/dL (12.0-15.5); LYMPH # 1.4 x10^3/uL (1.0-4.8); LYMPH % 11 % (24-48); MEAN CORPUSCULAR HEMOGLOBIN 27 pg (25-35); MEAN CORPUSCULAR HGB CONC 33 g/dL (31-37); MEAN CORPUSCULAR VOLUME 81 fL (79-100); MONO # 0.8 x10^3/uL (0.0-1.1); MONO % 6 % (0-9); NEUT # 10.7 x10^3uL (1.8-7.7); NEUT % 83 % (31-73); PLATELET COUNT 212 x10^3/uL (140-400); RED BLOOD COUNT 4.27 x10^6/uL (3.50-5.40); RED CELL DISTRIBUTION WIDTH 20.6 % (11.5-14.5); WHITE BLOOD COUNT 12.9 x10^3/uL (4.0-11.0)
[2018-08-16 18:59] LABS: CALCIUM 9.1 mg/dL (8.5-10.1); CREATININE 0.9 mg/dL (0.6-1.0); GFR 85.7; POTASSIUM 4.1 mmol/L (3.5-5.1)
[2018-08-16 19:05] LABS: ALBUMIN 3.3 g/dL (3.4-5.0); ALBUMIN/GLOBULIN RATIO 0.9 (1.0-1.7); TOTAL BILIRUBIN 0.6 mg/dL (0.2-1.0); TOTAL PROTEIN 7.1 g/dL (6.4-8.2)
[2018-08-16 19:25] VITALS: BP 123/71
[2018-08-16 19:36] LABS: ANISOCYTOSIS MOD; MICROCYTOSIS SLIGHT; PLT ESTIMATE ADEQUATE (ADEQUATE)
[2018-08-16] MEDS ORDERED: HYDR-3164 PO (19:40)
[2018-08-16] MEDS ORDERED: CIPR500T94 PO (19:40)
[2018-08-16] MEDS ORDERED: METR500T PO (19:42)
[2018-08-16] MEDS ORDERED: KETOROLAC 30 MG/ML VIAL. IV ONE (19:45)
[2018-08-16] MEDS ORDERED: PROC10TA57 PO (19:46)
[2018-08-18 16:16] LABS: GC PROBE Negative (Negative)
== END 2018-08-16 20:11 | disposition home or self-care (01) ==
LOC: ER 16:55
DX: O86.21 Infection of kidney following delivery (principal); O86.13 Vaginitis following delivery; B96.89 Other specified bacterial agents as the cause of diseases classified elsewhere; O86.4 Pyrexia of unknown origin following delivery
CPT/HCPCS: 36415; 80053; 81001; 81025; 83605; 85025; 87040; 87086; 87491; 87591; 96374; 96375; 99285; J0696; J2405; J7030; Q0111

== ENCOUNTER 2020-10-06 20:30 | Emergency (ER) | payer SELFPAY ==
[~2020-10-06 20:30] MED LIST changes: +CIPR500T94 PO; +HYDR-3164 PO; +METR500T PO; +PROC10TA57 PO
[2020-10-06 20:35] VITALS: BP 166/74
== END 2020-10-06 21:41 | disposition left against medical advice (07) ==
LOC: ER 20:30
DX: R06.02 Shortness of breath (principal); Z53.21 Procedure and treatment not carried out due to patient leaving prior to being seen by health care provider